=== PATIENT | female | born 1980 | race Caucasian/White ===

== ENCOUNTER 2022-11-01 06:19 | Day surgery (SDC) | payer BC ==
[~2022-11-01 06:19] MED LIST: Sodium Chloride 0.9% 10 ML Syringe FLUSH PRN
[2022-11-01] MEDS ORDERED: fentaNYL 100 MCG/2 ML SDV IV ONE (06:20)
[2022-11-01] MEDS ORDERED: Midazolam 1 MG/ML 2 ML SDV IV ONE (06:20)
[2022-11-01] MEDS ORDERED: Propofol 200 MG/20 ML SDV IV ONE (06:20)
[2022-11-01] MEDS ORDERED: Ketorolac 30 MG/ML SDV IVPUSH ONE (06:20)
[2022-11-01] MEDS ORDERED: Ondansetron 4 MG/2 ML SDV IVPUSH ONE (06:20)
[2022-11-01] MEDS: Lactated Ringers 1,000 ML IV SCH (07:36)
[2022-11-01] MEDS: ceFAZolin 1 GM Vial IVPUSH ONE (07:36)
[2022-11-01] MEDS: Lidocaine 1% with EPINEPHrine 1:100,000 20 ML MDV INJECT ONE (07:58)
[2022-11-01] MEDS: Bupivacaine 0.5% 30 ML SDV INJECT ONE (07:58)
== END 2022-11-01 09:36 | disposition home or self-care (01) ==
LOC: FB.SDS 06:19
PROVIDERS: ATTEND Surgery
DX: L73.2 Hidradenitis suppurativa (principal); Z79.899 Other long term (current) drug therapy; Z88.0 Allergy status to penicillin
CPT/HCPCS: 10121; 88304; J0690; J1885; J2250; J2405; J2704; J3010; J3490; J7120